=== PATIENT | male | born 1995 | race Caucasian/White ===

== ENCOUNTER 2017-09-12 19:51 | Emergency (ER) | payer OTHER ==
[~2017-09-12] VITALS: Ht 175.3 cm; Wt 104.3 kg
== END 2017-09-12 22:18 | disposition home or self-care (01) ==
LOC: ER 19:51
DX: K52.9 Noninfective gastroenteritis and colitis, unspecified (principal); B34.9 Viral infection, unspecified

== ENCOUNTER → 2019-02-08 | Emergency (ER) | payer OTHER ==
[~2019-02-08] VITALS: Ht 175.3 cm; Wt 102.1 kg
[~2019-02-08] MED LIST: CLONAZEPAM1 MG PO
== END | disposition home or self-care (01) ==
LOC: ER 19:55
DX: R25.1 Tremor, unspecified (principal); R51 Headache; M54.5 Low back pain; F06.4 Anxiety disorder due to known physiological condition